=== PATIENT | female | born 1950 | race African-American/Black ===

== ENCOUNTER 2019-08-17 09:32 | Observation (INO) | payer BC, SELFPAY ==
[2019-08-17] VITALS (34 sets, daily range): BP systolic 131–166; BP diastolic 41–67; PULSE 53–87; RESP 13–28; TEMP 36.2–36.9; O2SAT 87–100
--- NOTE | ~2019-08-17 | CT_ITS ---
EXAMINATION: CT BRAIN W/O DATE: 08/17/2019 10:31 INDICATION: Dizziness. Headache. Syncope. TECHNIQUE: Computed tomography (CT) of the head was performed without intravenous contrast. The dose- length product was 605.33 mGy-cm. The mA was adjusted according to patient size. Iterative reconstruc tion technique was employed. COMPARISON: No prior studies for comparison. FINDINGS: Normal brain parenchymal volume for age. Normal powers-white differentiation. No acute intrac ranial hemorrhage, infarction, mass or mass effect. There are scattered mild periventricular and subc ortical white matter changes, most likely related to small vessel ischemic disease (microangiopathy). No ventriculomegaly or midline shift. Midline sagittal images demonstrate a normal corpus callosum, c raniovertebral junction and sella turcica. Basilar cisterns are patent. Paranasal sinuses and mastoids are pneumatized. No depressed skull fractures. IMPRESSION: 1. No acute intracranial abnormality. Reviewed, dictated and finalized at location A.
--- NOTE | 2019-08-17 09:46 | ECG_ITS ---
Measurements Intervals [place] Rate: 59 P: NE: 0 QRS: -1 QRSD: 80 T: 33 QT: 385 QTc: 381 Interpretive Statements JUNCTIONAL RHYTHM VENTRICULAR PREMATURE COMPLEX BORDERLINE ST-T WAVE ABNORMALITY- DIFFUSE LEADS ABNORMAL ECG Electronically Signed On 08-17-2019 13:16:20 CDT by Fausto Padilla D.O.
--- NOTE | 2019-08-17 10:01 | PC.NURSE ---
Pt states she had similar episode last year but not sure why. Pt states she has been dizzy and nausea x 2 days but never felt like she was going to pass out. Pt states she has been eating and drinking normally and BS has been between 80-140. Pt states that is her normal BS. Pt is A&Ox4.
[2019-08-17 10:12] LABS: Basophils Absolute Auto 0.1 K/mm3 (0.0-0.1); Basophils Percent Auto 0.4 % (0.2-1.2); Eosinophils Absolute Auto 0.3 K/mm3 (0-0.3); Eosinophils Percent Auto 2.7 % (0-4.4); Hematocrit 36.4 % (37.0-47.0); Hemoglobin 11.5 g/dL (12.0-15.0); Immature Granulocyte Absolute 0.04 K/mm3 (0.00-0.031); Immature Granulocyte Percent A 0.3 % (0-0.5); Lymphocytes Absolute Auto 1.17 K/mm3 (0.9-3.2); Lymphocytes Percent Auto 9.5 % (18.3-44.2); Mean Corpuscular HGB Conc 31.6 g/dl (32-36); Mean Corpuscular Hemoglobin 27.1 pg (26-34); Mean Corpuscular Volume 85.6 fl (80-100); Mean Platelet Volume 10.6 fl (7.4-10.4); Monocytes Absolute Auto 0.4 K/mm3 (0.1-0.6); Monocytes Percent Auto 2.9 % (2.6-8.5); Neutrophils Absolute Auto 10.4 K/mm3 (1.3-6.7); Neutrophils Percent Auto 84.2 % (45.5-73.1); Platelet Count Result 290 k/mm3 (150-375); Red Blood Count 4.25 M/mm3 (4.2-5.4); White Blood Count 12.4 K/mm3 (4.5-10.0)
--- NOTE | 2019-08-17 10:16 | ED.DIZZY ---
HPI - Dizziness General Chief Complaint: Syncope Stated Complaint: syncopal episode Time Seen by Provider: 08/17/19 09:52 Source: patient Mode of arrival: EMS Limitations: no limitations History of Present Illness HPI Narrative: This patient is a 68 yo female who presents via EMS for evaluation after suffering a syncopal episode. Patient states for the past 2 days she has not been feeling well. She has been having intermittent episodes of dizziness when she stands up . She reports she was feeling better last night. She states this morning she was in the kitche when she became dizzy and passed out. Her family at bedside states she her 2 daughters caught patient and lowered her to the ground, so there was no head injury. Patient does reports bad frontal headache yesterday but has since resolved. She denies associated chest pain, sob, abdominal pain, focal weakness, blurred vision currently. She denies history of syncopal episode, heart disease. She does take verapamil but she is unsure why. MD elicited complaint: dizziness and lightheadedness Onset (ago): day(s) (2) Description: lightheadedness Context: change in body position Exacerbating factors: change in body position Related Data Home Medications Medication Instructions Recorded Confirmed clopidogrel 75 mg tablet 75 mg PO DAILY 03/24/19 08/17/19 gabapentin 100 mg capsule 100 mg PO HS 03/24/19 08/17/19 insulin degludec 200 unit/mL (3 130 unit SUB-Q DAILY ml 03/24/19 08/17/19 mL) subcutaneous pen semaglutide 1 mg/dose (2 mg/1.5 1 mg SUB-Q WEEKLY 03/24/19 08/17/19 mL) subcutaneous pen injector insulin lispro 100 unit/mL 5 unit SUB-Q .before each meal ml 03/26/19 08/17/19 subcutaneous pen pravastatin 10 mg PO DAILY 08/17/19 08/17/19 verapamil 480 mg PO DAILY 08/17/19 08/17/19 Allergies Allergy/AdvReac Type Severity Reaction Status Date / Time No Known Drug Allergies Allergy Unknown Unknown Verified 08/17/19 09:36 Review of Systems Review of Systems: All systems reviewed & are unremarkable except as noted in HPI and below Constitutional: Constitutional: Denies chills and Denies fever(s) Eyes: Eyes: Denies change in vision, Denies diplopia, Denies loss of peripheral vision and Reports requires corrective lenses ENT: Denies dysphagia, Denies vertigo, Reports dizziness, Denies nasal congestion and Denies sore throat Cardiovascular: Cardiovascular: Denies chest pain and Denies radiating jaw, neck or arm pain Respiratory: Respiratory: Denies cough, Denies dyspnea and Denies wheezing Gastrointestinal: Gastrointestinal: Denies abdominal pain, Denies bloating, Denies constipation, Denies heartburn, Denies diarrhea, Reports nausea and Denies vomiting Neurologic: Denies vertigo, Reports dizziness, Reports headache(s), Denies focal weakness, Denies numbness and Denies weakness [facility] Past Medical History Medical History (Updated 08/17/19 @ 18:56 by Bertha Roberts MD) Chronic anemia Essential (primary) hypertension Mixed hyperlipidemia Neuropathy due to type 2 diabetes mellitus Normal cardiac stress test (~11/2014) Obstructive sleep apnea on CPAP Peripheral arterial disease OLENA on September 25, 2018 done for claudication showed arterial occlusive disease to both lower limbs with mild decrease in right OLENA and moderate to severe decrease left OLENA. Status post bilateral iliac stents per Dr. Márquez. Type 2 diabetes mellitus with hyperglycemia, with long-term current use of insulin Hemoglobin A1c was 7.6% in March 2019. Surgical History Surgical History (Updated 08/17/19 @ 17:43 by Bisi Rivera PA-C) History of colonoscopy (~03/2010) Per Dr. Gonzales, for evaluation of rectal bleeding. Found to have internal hemorrhoids and stiff grade diverticulosis. History of hysterectomy History of vascular surgery Bilateral iliac artery stents per Dr. Márquez at [facility]. Family History Family History (Reviewed 08/17/19 @ 15:18 by
[2019-08-17 10:24] LABS: Prothrombin Time 13.1 Seconds (11.1-14.7)
[2019-08-17 10:25] LABS: Blood Urea Nitrogen 32 mg/dL (7-17); Calcium 9.6 mg/dL (8.4-10.2); Carbon Dioxide 23 mmol/L (22-30); Chloride 104 mmol/L (98-107); Estimated CRCL calculation 43 ml/min; Estimated Glomerular Filt Rate 50; Glucose 132 mg/dL (65-105); Magnesium 1.9 mg/dL (1.6-2.3); Partial Thromboplastin Time 23.6 SECONDS (22.3-36.8); Potassium 4.5 mmol/L (3.4-5.0); Sodium 135 mmol/L (137-145)
[2019-08-17 10:37] LABS: Troponin I < 0.012 ng/mL (0.000-0.034)
[2019-08-17 11:17] LABS: Add Urine Microscopic? YES; Appearance Urine Clear (Clear); Bacteria Urine Trace /hpf; Bilirubin Urine Negative (Negative); Blood Urine Negative (Negative); Color Urine Yellow (Yellow); Glucose Urine UA 3+ mg/dL (Negative); Hyaline Casts Urine 20-29 /lpf; Ketones Urine Negative (Negative); Leukocyte Esterase Ur Negative LEU/UL (Negative); Mucus Urine Rare /lpf; Nitrate Urine Negative (Negative); Protein Urine Negative (Negative); RBC Urine 0-2 /hpf (0-2); Specific Grav Ur 1.012 (1.001-1.035); Squamous Epithelial Cell Urine Occasional /hpf (Few); Urobilinogen Urine Negative mg/dL (<2.0); WBC Urine 0-3 /hpf
--- NOTE | 2019-08-17 14:27 | PM.CNCAR ---
Assessment and Plan Assessment and plan (1) Type 2 diabetes mellitus with hyperglycemia, with long-term current use of insulin: Code(s): E11.65 - Type 2 diabetes mellitus with hyperglycemia; Z79.4 - buttermilk drier operator (current) use of insulin Status: Acute (2) Mixed hyperlipidemia: Code(s): E78.2 - Mixed hyperlipidemia Status: Acute Assessment and Plan: Will check lipid profile and treat accordingly (3) Arterial disease: Code(s): I77.9 - Disorder of arteries and arterioles, unspecified Status: Acute (4) Essential (primary) hypertension: Code(s): I10 - Essential (primary) hypertension Status: Acute Assessment and Plan: She was on verapamil which would have to stop due to bradycardia, will switch to Norvasc (5) Claudication: Code(s): I73.9 - Peripheral vascular disease, unspecified Status: Acute (6) Syncope: Code(s): R55 - Syncope and collapse Status: Acute Assessment and Plan: Likely due to bradycardia, which is probably is due to either sick sinus syndrome or due to medications, we will hold verapamil for now and watch her heart rhythm, if she has no recurrence of syncope and she has no significant bradycardia then she would be okay, otherwise she has bradycardia gain or she had syncope again while not taking the verapamil then she would need pacemaker with possible underlying sick sinus syndrome (7) Symptomatic bradycardia: Code(s): R00.1 - Bradycardia, unspecified Status: Acute Assessment and Plan: Likely due to medication with verapamil, will put that on hold, monitor heart rhythm, may need pacemaker if she has persistent bradycardia in spite of stopping verapamil. Will get echocardiogram to evaluate current left ventricular systolic function, and look for any structural heart disease Additional Plan Thank you for allowing me to participate in this patient's care, I will be following up with you. Please do not hesitate to call me for any other inquiry History of Present Illness History of Present Illness Consult date/time: 08/17/19 14:27 68-year-old lady, with history of hypertension, came to hospital because of history of syncope and dizziness. She stated that she had history of syncope in the past but at that time was related to dehydration last year she has not been feeling well for the past 2 or 3 days and had 1 episode of syncope this morning. Paramedics called and when they arrived was noted to have bradycardia seems to be junctional bradycardia, I gave her 1 amp of atropine, improved her heart rate. She felt better since, she is feeling okay now. Initially she was noted to have junctional rhythm and now she is in sinus rhythm rate of 59. She had not been feeling well for the past few days, according to her she was on verapamil for the past few years, for hypertension. The lately and not been feeling well. She also had 1 episode of diaphoresis but no chest pain, and had nausea but no vomiting. So far cardiac enzymes are negative and EKG showed sinus bradycardia and junctional bradycardia with no ischemic ST-T changes and no ST elevation Reason For Visit: syncope/etienne cardia Review of Systems Constitutional: Constitutional: Reports fatigue, Reports lethargy and Reports weakness Cardiovascular: Cardiovascular: Reports as per HPI Respiratory: Respiratory: Reports dyspnea on exertion [facility] Past Medical History Medical History (Updated 08/17/19 @ 14:29 by Joel Escobar MD) Arterial disease Essential (primary) hypertension Mixed hyperlipidemia Neuropathy due to type 2 diabetes mellitus Type 2 diabetes mellitus with hyperglycemia, with long-term current use of insulin Family History Family History (Updated 11/12/15 @ 23:19 by DOCTOR UNKNOWN) Father Family history of glaucoma Family history of diabetes mellitus in first degree relative Family history of type 2 diabetes mellitus Mother F
--- NOTE | 2019-08-17 14:32 | ADMGEN ---
This patient, Lawanda Diaz, was admitted to 2 Medical Room 253-01. Patient/family oriented to hospital policies and general routines including ID bracelet, bed and alarms, visiting hours, pain management, procedures, bathroom and other care routines, personal items, smoking policy, room service/diet, and visiting hours. Valuables list has been completed. Information on how to activate the Rapid Response Team has been discussed. Patient/Family are encouraged to report perceived risks to care and to ask questions if they do not understand what they are told or what they should do.
--- NOTE | 2019-08-17 15:50 | PM.IMHP ---
H&P: HPI History of Present Illness Chief complaint: Syncopal episode. Narrative: Lawanda Diaz is a 68-year-old female with insulin-dependent type 2 diabetes mellitus, hypertension, hyperlipidemia, and obstructive sleep apnea who presented to the emergency department earlier today via EMS from home for evaluation after a syncopal episode. She has been feeling unwell for the past 2 days, with intermittent episodes of dizziness/lightheadedness and fatigue, as well as a diffuse headache. While in the kitchen this morning she suddenly started to feel warm and became dizzy/lightheaded, nauseated, and diaphoretic. Her daughters were nearby, and they were able to lower her to the floor where she lost consciousness briefly. On EMS arrival, her blood pressure was 137/61 her pulse was 45. She does not know her baseline heart rate, but has never been told of bradycardia. She denies the addition of any new medications recently and has not had any dose changes. She has been eating and drinking as per usual, but did have some diarrhea earlier today. No fever, chills, or sweats. She denies sinus congestion, rhinorrhea, otalgia, and odynophagia. No cough or shortness of breath. No chest pain, pleuritic pain, or palpitations. Fasting glucose this morning was 103, which is pretty typical for her. She has not had any episodes of hypoglycemia recently. Review of Systems Review of Systems: Narrative: Twelve systems were reviewed with pertinent positives and negatives as per HPI. She denies sick contacts. No recent travel. No dysuria. She denies nephropathy, neuropathy, and retinopathy. She believes her diabetes is fairly well controlled with a recent hemoglobin A1c of 7.6% several months ago. No history of venous thromboembolism. She denies lower extremity edema, calf pain, and tenderness. Except as documented, all other systems were reviewed and are negative. [facility] Past Medical History Medical History (Updated 08/17/19 @ 17:50 by Bisi Rivera PA-C) Chronic anemia Essential (primary) hypertension Mixed hyperlipidemia Neuropathy due to type 2 diabetes mellitus Normal cardiac stress test (~11/2014) Obstructive sleep apnea on CPAP Peripheral arterial disease OLENA on September 25, 2018 done for claudication showed arterial occlusive disease to both lower limbs with mild decrease in right OLENA and moderate to severe decrease left OLENA. Status post bilateral iliac stents per Dr. Márquez. Type 2 diabetes mellitus with hyperglycemia, with long-term current use of insulin Hemoglobin A1c was 7.6% in March 2019. Surgical History Surgical History (Updated 08/17/19 @ 17:43 by Bisi Rivera PA-C) History of colonoscopy (~03/2010) Per Dr. Gonzales, for evaluation of rectal bleeding. Found to have internal hemorrhoids and stiff grade diverticulosis. History of hysterectomy History of vascular surgery Bilateral iliac artery stents per Dr. Márquez at [facility]. Family History Family History Father Family history of glaucoma Family history of diabetes mellitus in first degree relative Family history of type 2 diabetes mellitus Mother Family history of congestive heart failure Social History Social History (Updated 08/17/19 @ 17:43 by Bisi Rivera PA-C) Social History: The patient lives in [place] with her daughter and granddaughter. She works for [employer]. She is a former smoker, up to half a pack of cigarettes a day, and quit about 6 years ago. She denies alcohol and drug abuse. Her sister Paula Cazares and daughter Julianna Lovell are her surrogate decision makers and she wishes to be a full code. Spiritual care concerns: No Agree to blood products: Yes Meds Home Medications and Allergies Home Medications Medication Instructions Recorded Confirmed Type clopidogrel 75 mg tablet 75 mg PO DAILY 03/24/19 08/17/19 History gabapentin 100 mg cap
[2019-08-17 16:16] LABS: Cholesterol 134 mg/dL (0-200); HDL Direct 32 mg/dL; Triglycerides 77 mg/dL (<150)
[2019-08-17 16:27] LABS: LDL Cholesterol Direct 70 mg/dL
[2019-08-17 16:34] LABS: Glucose Point of Care 82 (65-105)
[2019-08-17 16:48] LABS: Thyroid Stimulating Hormone 0.813 uIU/mL (0.465-4.680)
[2019-08-17] MEDS: SODIUM CHLORIDE 0.9% IV 1,000 ML 100 ML IV CONT (18:08)
[2019-08-17] MEDS: GABAPENTIN 100 MG CAPSULE PO (20:52)
[2019-08-17 22:39] LABS: Glucose Point of Care 109 (65-105)
[2019-08-18] VITALS (10 sets, daily range): BP systolic 115–139; BP diastolic 46–79; PULSE 67–87; RESP 18–20; TEMP 35.9–36.1; O2SAT 97–98
--- NOTE | 2019-08-18 | ECHO_ITS ---
Patient Info Name: Lawanda Diaz Age: 68 years : 1950 Gender: Female Ht: 63 in Wt: 220 lbs BSA: 2.16 m2 HR: 72 bpm BP: 115 / 55 mmHg Heart Rhythm: Sinus Rhythm Technical Quality: Good Exam Date: 08/18/2019 10:54 AM Exam Location: [facility] Card Pulmonary Patient Status: Inpatient Admit Date: 08/17/2019 Staff Ordering Physician: Joel Escobar MD Injection Molding Machine Tender: Miguelito Arzola RDCS Attending Provider: Krsitin Coppola MD Exam Type: CA echo doppler color flow Study Info Indications R00.1 - Bradycardia, unspecified Complete two-dimensional, color flow and Doppler transthoracic echocardiogram is performed. History/Risk Factors Bradycardia and syncope; HTN, anemia, DM2, PAD, ANYA. Summary 1. Left ventricular chamber dimension is normal. 2. Left ventricular systolic function is normal, estimated at 60-65%. 3. Right ventricular systolic function is normal. 4. Left atrial chamber dimension is normal. 5. There is mild aortic valve sclerosis. 6. There is no aortic valve stenosis. 7. There is no mitral valve regurgitation. 8. There is mild tricuspid valve regurgitation. 9. No pulmonary hypertension, estimated pulmonary arterial systolic pressure is 37 mmHg. 10. There is no pericardial effusion. Left Ventricle Left ventricular chamber dimension is normal. Left ventricular systolic function is normal, estimated at 60-65%. There is no increased left ventricular wall thickness. Left ventricular septal wall motion is normal. The left ventricular diastolic function is normal. Right Ventricle Right ventricular chamber dimension is normal. Right ventricular systolic function is normal. Left Atria Left atrial chamber dimension is normal. Right Atria Right atrial chamber dimension is normal. Aortic Valve The aortic valve is trileaflet. There is mild aortic valve sclerosis. There is no aortic valve stenosis. There is no aortic valve regurgitation. Pulmonic Valve The pulmonic valve is normal. There is no pulmonic valve stenosis. There is no pulmonic regurgitation. Mitral Valve The mitral valve has normal leaflets. There is no mitral valve stenosis. There is no mitral valve regurgitation. Tricuspid Valve The tricuspid valve leaflets are normal. There is no significant tricuspid valve stenosis. There is mild tricuspid valve regurgitation. No pulmonary hypertension, estimated pulmonary arterial systolic pressure is 37 mmHg. Pericardium/Pleural The pericardium appears normal. There is no pericardial effusion. Inferior Vena Cava Normal inferior vena cava. Aorta The aortic root size at the sinus of Valsalva is normal. The prox ascending aorta size is normal. Left Ventricular Outflow Tract Name Value Normal LVOT 2D LVOT Diameter 1.9 cm LVOT Doppler LVOT Peak Gradient 5 mmHg LVOT Mean Gradient 3 mmHg LVOT VTI 28 cm LVOT VTI/AV VTI Ratio 0.6 LVOT Stroke Volume 80 ml LVOT CO
[2019-08-18] MEDS: SODIUM CHLORIDE 0.9% IV 1,000 ML 100 ML IV CONT (04:22)
[2019-08-18 05:07] LABS: Basophils Absolute Auto 0.1 K/mm3 (0.0-0.1); Basophils Percent Auto 0.6 % (0.2-1.2); Eosinophils Absolute Auto 0.3 K/mm3 (0-0.3); Eosinophils Percent Auto 3.8 % (0-4.4); Hematocrit 36.3 % (37.0-47.0); Hemoglobin 11.5 g/dL (12.0-15.0); Immature Granulocyte Absolute 0.02 K/mm3 (0.00-0.031); Immature Granulocyte Percent A 0.2 % (0-0.5); Lymphocytes Absolute Auto 1.58 K/mm3 (0.9-3.2); Lymphocytes Percent Auto 17.5 % (18.3-44.2); Mean Corpuscular HGB Conc 31.7 g/dl (32-36); Mean Corpuscular Hemoglobin 27.3 pg (26-34); Mean Platelet Volume 10.6 fl (7.4-10.4); Monocytes Absolute Auto 0.5 K/mm3 (0.1-0.6); Monocytes Percent Auto 5.2 % (2.6-8.5); Neutrophils Absolute Auto 6.6 K/mm3 (1.3-6.7); Neutrophils Percent Auto 72.7 % (45.5-73.1); Platelet Count Result 304 k/mm3 (150-375); Red Blood Count 4.22 M/mm3 (4.2-5.4); Red Cell Distribution Width 13.8 % (11.5-14.5)
[2019-08-18 05:18] LABS: Blood Urea Nitrogen 22 mg/dL (7-17); Calcium 9.2 mg/dL (8.4-10.2); Carbon Dioxide 27 mmol/L (22-30); Chloride 105 mmol/L (98-107); Estimated CRCL calculation 61 ml/min; Estimated Glomerular Filt Rate > 60; Glucose 122 mg/dL (65-105); Potassium 4.2 mmol/L (3.4-5.0); Sodium 136 mmol/L (137-145)
[2019-08-18 08:00] LABS: Glucose Point of Care 118 (65-105)
[2019-08-18] MEDS: PRAVASTATIN SODIUM 10 MG TABLET PO (08:42)
[2019-08-18] MEDS: LOSARTAN POTASSIUM 100 MG TABLET PO (08:42)
[2019-08-18] MEDS: CLOPIDOGREL BISULFATE 75 MG TABLET PO (08:42)
[2019-08-18] MEDS: SODIUM CHLORIDE 0.9% IV 500 ML IV CONT (10:30)
[2019-08-18 10:48] LABS: Glucose Point of Care 166 (65-105)
--- NOTE | 2019-08-18 11:06 | PM.PNCARD ---
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 insulin Status: Acute (2) Mixed hyperlipidemia: Code(s): E78.2 - Mixed hyperlipidemia Status: Acute Assessment and Plan: Will check lipid profile and treat accordingly (3) Arterial disease: Code(s): I77.9 - Disorder of arteries and arterioles, unspecified Status: Acute (4) Essential (primary) hypertension: Code(s): I10 - Essential (primary) hypertension Status: Acute Assessment and Plan: She was on verapamil which would have to stop due to bradycardia, will switch to Norvasc (5) Claudication: Code(s): I73.9 - Peripheral vascular disease, unspecified Status: Acute (6) Syncope: Code(s): R55 - Syncope and collapse Status: Acute Assessment and Plan: No recurrence, she is in sinus rhythm now, likely was due to ruptured which was stopped (7) Symptomatic bradycardia: Code(s): R00.1 - Bradycardia, unspecified Status: Acute Assessment and Plan: Heart rate is 80 now, no recurrence of bradycardia. If echocardiogram showed no significant structural heart disease then she can go home without the verapamil Additional Plan After echocardiogram is done if no significant structural heart disease she can go home without the verapamil, and to have a follow-up with me in 1 week Subjective Date/time seen: 08/18/19 11:06 She feels better today, no more dizziness or lightheadedness, on the monitor she has sinus rhythm noted with no recurrence of bradycardia. Exam Narrative: Exam Narrative: Awake alert oriented x3 not in acute distress Neck is supple no obvious JVD, no carotid bruit Chest: Good air entry bilaterally, lungs are clear to auscultation and percussion bilaterally Cardiovascular: Regular rate and rhythm, 2/6 systolic murmur noted left sternal border Abdomen: Soft nontender bowel sounds positive Extremities: No edema has good pulses distally bilaterally Objective Data Vital Signs Vital Signs: Vital Signs - 24 hr 08/17/19 11:07 08/17/19 11:16 08/17/19 11:30 Temperature Pulse Rate 85 85 81 Respiratory Rate 16 14 18 Blood Pressure Pulse Oximetry 87 L 100 08/17/19 11:31 08/17/19 11:47 08/17/19 11:50 Temperature Pulse Rate 81 73 75 Respiratory Rate 17 17 15 Blood Pressure 151/67 H 146/58 H Pulse Oximetry 96 100 99 08/17/19 12:11 08/17/19 12:19 08/17/19 12:30 Temperature Pulse Rate 75 69 72 Respiratory Rate 17 18 19 Blood Pressure Pulse Oximetry 98 97 97 08/17/19 12:45 08/17/19 12:47 08/17/19 13:05 Temperature Pulse Rate 76 75 65 Respiratory Rate 20 17 14 Blood Pressure 166/65 H Pulse Oximetry 99 98 100 08/17/19 13:15 08/17/19 13:17 08/17/19 13:30 Temperature Pulse Rate 74 78 76 Respiratory Rate 13 19 16 Blood Pressure 150/57 H Pulse Oximetry 99 100 97 08/17/19 14:15 08/17/19 16:00 08/17/19 20:00 Temperature 36.3 C L 36.4 C L Pulse Rate 70 85 87 Respiratory Rate 16 18 Blood Pressure 136/52 L 150/59 H Pulse Oximetry 100 97 08/17/19 20:56 08/17/19 20:57 08/17/19 22:00 Temperature 36.3 C L 36.4 C L 36.2 C L Pulse Rate 73 87 74 Respiratory Rate 16 18 16 Blood Pressure 139/49 L 150/59 H 140/42 L Pulse Oximetry 100 97 98 08/17/19 22:09 08/18/19 00:00 08/18/19 02:36 Temperature Pulse Rate 68 68 67 Respiratory Rate 16 20 Blood Pressure Pulse Oximetry 98 97 08/18/19 04:00 08/18/19 06:00 08/18/19 08:00 Temperature 36.1 C L Pulse Rate 77 73 87 Respiratory Rate 18 18 Blood Pressure 115/55 L Pulse Oximetry 97 97 08/18/19 08:24 08/18/19 08:26 08/18/19 08:29 Temperature Pulse Rate 70 74 87 Respiratory Rate Blood Pressure 127/69 135/73 139/79 Pulse Oximetry Intake/Output Intake/Out
--- NOTE | 2019-08-18 11:36 | PM.DS ---
DS: Diagnosis Admitting Diagnosis Admitting Diagnosis: Type 2 diabetes mellitus with hyperglycemia Discharge Diagnosis (1) Syncope: Code(s): R55 - Syncope and collapse Status: Acute Assessment and Plan: Presumably due to symptomatic bradycardia; orthostatic vital signs were unremarkable. Her serum creatinine level is elevated from her baseline, arguing that she might have beenmildly dehydrated. Creatinine corrected with IV hydration overnight Overnight telemetry unremarkable Echocardiogram OK per Dr. Menjivar Verapamil on hold at this time. (2) Bradycardia: Code(s): R00.1 - Bradycardia, unspecified Status: Acute Assessment and Plan: Likely due to medication (verapamil) (3) Elevated serum creatinine: Code(s): R79.89 - Other specified abnormal findings of blood chemistry Status: Acute Assessment and Plan: Her creatinine has always been within normal range except for an isolated, elevated reading in March 2019 of 1.03. Normalized with IVF overnight (4) Type 2 diabetes mellitus with hyperglycemia, with long-term current use of insulin: Code(s): E11.65 - Type 2 diabetes mellitus with hyperglycemia; Z79.4 - assisted (current) use of insulin Status: Acute Assessment and Plan: Resume home regimen upon discharge (5) Essential (primary) hypertension: Code(s): I10 - Essential (primary) hypertension Status: Acute Assessment and Plan: Blood pressure well controlled without verapamil Suspect noncompliance with diet, meds at home (6) Chronic anemia: Code(s): D64.9 - Anemia, unspecified Status: Acute Assessment and Plan: Hemoglobin and hematocrit are stable compare to previous labs. (7) Obstructive sleep apnea on CPAP: Code(s): G47.33 - Obstructive sleep apnea (adult) (pediatric); Z99.89 - Dependence on other enabling machines and devices Status: Acute Assessment and Plan: CPAP (8) Peripheral arterial disease: Code(s): I73.9 - Peripheral vascular disease, unspecified Status: Acute Assessment and Plan: Status post bilateral iliac stents. Continue clopidogrel and pravastatin. DS: Summary Hospital Course Reason for hospitalization: Syncopal episode Hospital Course: Patient experienced a syncopal episode at home. She felt warm dizzy. Passed out but did not fall and hit her head or injure herself. See H&P for details. There was no incontinence tongue biting. No postictal phase. She was admitted for observation. Her for appt mil was held. Heart rate was 45 initially. She remained in sinus rhythm with heart rate in the 60s to 70s. She was asymptomatic. She was given IV hydration overnight due to elevated creatinine. This resolved. She was encouraged to eat and drink adequate amounts, especially fluid. Medications were adjusted and noted and discharge medications. Her blood sugars remained under good control. A1c was 7.7%. Echocardiogram was unremarkable. Patient was seen by cardiology and they agreed with plan of care. Status at Discharge Functional status at discharge: independent ambulation Overall status at discharge: patient is back to baseline Time Spent with Patient Time attestation: Total time spent providing and/or coordinating discharge services: 36 min Time spent: Greater than 30 minutes Exam Narrative: Exam Narrative: HEENT: EOMI, PERRL, sclerae nonicteric, pharyngeal mucosa pink and intact NECK: No JVD, adenopathy, or t
== END 2019-08-18 15:36 | disposition home or self-care (01) ==
LOC: ANHED 13:13 → ANH2MED 16:15
PROVIDERS: Specialist; Admitting Provider Family Medicine; Emergency Provider General Practice; PCP Internal Medicine; Visit Provider Internal Medicine
DX: R55 Syncope and collapse (principal); R00.1 Bradycardia, unspecified; R79.89 Other specified abnormal findings of blood chemistry; E11.65 Type 2 diabetes mellitus with hyperglycemia; E11.40 Type 2 diabetes mellitus with diabetic neuropathy, unspecified; E11.51 Type 2 diabetes mellitus with diabetic peripheral angiopathy without gangrene; I10 Essential (primary) hypertension; D64.9 Anemia, unspecified; G47.33 Obstructive sleep apnea (adult) (pediatric); E78.2 Mixed hyperlipidemia; Z79.4 Long term (current) use of insulin; Z79.899 Other long term (current) drug therapy; Z87.891 Personal history of nicotine dependence
CPT/HCPCS: 36415; 70450; 80048; 80061; 81001; 83735; 84443; 84484; 85025; 85610; 85730; 93005; 93306; 96360; 96361; 99285; A9270; G0378; J7030; J7040

== ENCOUNTER 2020-01-14 02:22 | Outpatient (CLI) | payer BC, SELFPAY ==
[2020-01-14 18:24] LABS: SARS-CoV-2 RNA PCR Negative
== END 2020-01-14 02:23 | disposition home or self-care (01) ==
LOC: ANHCOVIDDT 02:23
PROVIDERS: PCP Internal Medicine; Visit Provider Internal Medicine Gastroenterology
DX: Z01.812 Encounter for preprocedural laboratory examination (principal); Z20.828 Contact with and (suspected) exposure to other viral communicable diseases
CPT/HCPCS: 87635; C9803; U0003

== ENCOUNTER 2020-01-16 00:51 | Day surgery (SDC) | payer BC, SELFPAY ==
[2020-01-07 15:03] VITALS: BMI 37.0
[2020-01-16 09:33] VITALS: BP 149/68; PULSE 79; RESP 20; TEMP 36; O2SAT 100
[2020-01-16 09:44] LABS: Glucose Point of Care 116 (65-105)
[2020-01-16] MEDS: LACTATED RINGERS 1,000 ML 150 ML IV CONT (09:57)
--- NOTE | 2020-01-16 10:25 | PM.HPGS ---
History of Present Illness History of Present Illness Consent: Risks, benefits, and alternatives have been discussed and questions answered. Patient agrees to proceed with procedure. Chief complaint: Neoplasm Screening Narrative: Lawanda Diaz is a 69 year old female Here for colon cancer screening [facility] Past Medical History Medical History Chronic anemia Essential (primary) hypertension Mixed hyperlipidemia Neuropathy due to type 2 diabetes mellitus Normal cardiac stress test (~11/2014) Obstructive sleep apnea on CPAP Peripheral arterial disease OLENA on September 25, 2018 done for claudication showed arterial occlusive disease to both lower limbs with mild decrease in right OLENA and moderate to severe decrease left OLENA. Status post bilateral iliac stents per Dr. Márquez. Type 2 diabetes mellitus with hyperglycemia, with long-term current use of insulin Hemoglobin A1c was 7.6% in March 2019. Surgical History Surgical History History of colonoscopy (~03/2010) Per Dr. Gonzales, for evaluation of rectal bleeding. Found to have internal hemorrhoids and stiff grade diverticulosis. History of hysterectomy History of vascular surgery Bilateral iliac artery stents per Dr. M[facility]quez at [facility]. Family History Family History Father Family history of glaucoma Family history of diabetes mellitus in first degree relative Family history of type 2 diabetes mellitus Mother Family history of congestive heart failure Social History Social History Social History: The patient lives in [place] with her daughter and granddaughter. She works for [employer]. She is a former smoker, up to half a pack of cigarettes a day, and quit about 6 years ago. She denies alcohol and drug abuse. Her sister Paula Cazares and daughter Julianna Lovell are her surrogate decision makers and she wishes to be a full code. Living arrangements: with family Spiritual care concerns: No Agree to blood products: Yes Meds Home Medications and Allergies Home Medications Medication Instructions Recorded Confirmed Type clopidogrel 75 mg tablet 75 mg PO DAILY 03/24/19 01/07/20 History pen needle, diabetic 32 gauge x #100 each 10/24/19 01/07/20 Rx 5/32 metformin 1,000 mg tablet 1,000 mg PO BID #180 tablet 11/10/19 01/07/20 Rx amlodipine 5 mg tablet 5 mg PO DAILY #90 tablet 11/12/19 01/07/20 Rx semaglutide 1 mg/dose (2 mg/1.5 1 mg SUB-Q WEEKLY #3 ml 11/12/19 01/07/20 Rx mL) subcutaneous pen injector pravastatin 20 mg tablet 10 mg PO DAILY #90 tablet 12/08/19 01/07/20 Rx dapagliflozin 10 mg tablet 10 mg PO DAILY #90 tablet 12/15/19 01/07/20 Rx insulin degludec 200 unit/mL (3 130 unit SUB-Q DAILY #9 ml 12/26/19 01/07/20 Rx mL) subcutaneous pen insulin lispro 100 unit/mL 5 unit SUB-Q .before each meal #3 12/26/19 01/07/20 Rx subcutaneous pen ml gabapentin 100 mg capsule 200 mg PO HS #180 cap 01/02/20 01/07/20 Rx losartan 100 1 tablet PO DAILY #90 tablet 01/07/20 01/07/20 Rx mg-hydrochlorothiazide 25 mg tablet Allergies Allergy/AdvReac Type Severity Reaction Status Date / Time No Known Drug Allergies Allergy Unknown Unknown Verified 01/16/20 09:31 Vital Signs Vital Signs - 24 hr 01/16/20 09:33 Temperature 36.0 C L Pulse Rate 79 Respiratory Rate 20 Blood Pressure 149/68 H Pulse Oximetry 100 Exam Resp: Auscultation: clear to auscultation bilaterally Cardio: Rate: regular rate Rhythm: regular rhythm GI: GI Palp: Yes Soft to palpation and No Tenderness to palpation present (GI) Assessment and Plan Assessment and plan (1) Colon cancer screening: Code(s): Z12.11 - Encounter for screening for malignant neoplasm of colon Status: Acute Assessment and Plan: Colonoscopy wi
--- NOTE | 2020-01-16 10:35 | WPDANESEPPF ---
Anes - Initial Pre Proc Eval Procedure: Operation Date: 01/16/20 10:30 Proposed Procedures p Screening Colonoscopy - Lobo Gonzales MD Date/Time: 01/16/20 10:35 Surgeon: Lobo Gonzales MD Pre Op Diagnosis: Neoplasm Screening Patient Data Age: 69 Gender: F Height: 5 ft 3 in Weight: 92.2 kg Last Vital Signs Temp 96.8 F L 01/16/20 09:33 Pulse 79 01/16/20 09:33 Resp 20 01/16/20 09:33 BP 149/68 H 01/16/20 09:33 Pulse Ox 100 01/16/20 09:33 Allergies Allergy/AdvReac Type Severity Reaction Status Date / Time No Known Drug Allergies Allergy Unknown Unknown Verified 01/16/20 09:31 Home Medications Medication Instructions Recorded Confirmed Type clopidogrel 75 mg tablet 75 mg PO DAILY 03/24/19 01/07/20 History pen needle, diabetic 32 gauge x #100 each 10/24/19 01/07/20 Rx /32 metformin 1,000 mg tablet 1,000 mg PO BID #180 tablet 11/10/19 01/07/20 Rx amlodipine 5 mg tablet 5 mg PO DAILY #90 tablet 11/12/19 01/07/20 Rx semaglutide 1 mg/dose (2 mg/1.5 1 mg SUB-Q WEEKLY #3 ml 11/12/19 01/07/20 Rx mL) subcutaneous pen injector pravastatin 20 mg tablet 10 mg PO DAILY #90 tablet 12/08/19 01/07/20 Rx dapagliflozin 10 mg tablet 10 mg PO DAILY #90 tablet 12/15/19 01/07/20 Rx insulin degludec 200 unit/mL (3 130 unit SUB-Q DAILY #9 ml 12/26/19 01/07/20 Rx mL) subcutaneous pen insulin lispro 100 unit/mL 5 unit SUB-Q .before each meal #3 12/26/19 01/07/20 Rx subcutaneous pen ml gabapentin 100 mg capsule 200 mg PO HS #180 cap 01/02/20 01/07/20 Rx losartan 100 1 tablet PO DAILY #90 tablet 01/07/20 01/07/20 Rx mg-hydrochlorothiazide 25 mg tablet Laboratory Tests 01/16/20 09:42 POC Capillary Glucose 116 mg/dl H mg/dl (65-105) Patient hx anesthesia problems: none Family hx anesthesia problems: none [facility] Past Medical History Medical History Chronic anemia Essential (primary) hypertension Mixed hyperlipidemia Neuropathy due to type 2 diabetes mellitus Normal cardiac stress test (~11/2014) Obstructive sleep apnea on CPAP Peripheral arterial disease OLENA on September 25, 2018 done for claudication showed arterial occlusive disease to both lower limbs with mild decrease in right OLENA and moderate to severe decrease left OLENA. Status post bilateral iliac stents per Dr. Márquez. Type 2 diabetes mellitus with hyperglycemia, with long-term current use of insulin Hemoglobin A1c was 7.6% in March 2019. Surgical History Surgical History History of colonoscopy (~03/2010) Per Dr. Gonzales, for evaluation of rectal bleeding. Found to have internal hemorrhoids and stiff grade diverticulosis. History of hysterectomy History of vascular surgery Bilateral iliac artery stents per Dr. M[facility]quez at [facility]. Family History Family History Father Family history of glaucoma Family history of diabetes mellitus in first degree relative Family history of type 2 diabetes mellitus Mother Family history of congestive heart failure Social History Social History Social History: The patient lives in [place] with her daughter and granddaughter. She works for [employer]. She is a former smoker, up to half a pack of cigarettes a day, and quit about 6 years ago. She denies alcohol and drug abuse. Her sister Paula Cazares and daughter Julianna Lovell are her surrogate decision makers and she wishes to be a full code. Living arrangements: with family Spiritual care concerns: No Agree to blood products: Yes Anes - Eval Final PreProcedure Day of Procedure 01/16/20 10:35 Patient weight: obese Heart: regular rate and rhythm Lungs: clear to auscultation Airway: Mallampati scale class II Neurological: alert and oriented Last oral intake: >/= 8 hours ASA classi
[2020-01-16 11:02] VITALS: BP 84/49; PULSE 79; RESP 20; O2SAT 99
[2020-01-16 11:12] VITALS: BP 111/70; PULSE 84; RESP 20; O2SAT 99
[2020-01-16 11:22] VITALS: BP 149/78; PULSE 78; RESP 20; O2SAT 99
[2020-01-16 11:36] LABS: Glucose Point of Care 109 (65-105)
== END 2020-01-16 12:01 | disposition home or self-care (01) ==
PROVIDERS: PCP Internal Medicine; Visit Provider Internal Medicine Gastroenterology
PROC: 0DJD8ZZ Inspection of Lower Intestinal Tract, Via Natural or Artificial Opening Endoscopic (ICD-10-PCS; CPT 45378; principal; 2020-01-16 10:30)
DX: Z12.11 Encounter for screening for malignant neoplasm of colon (principal); K57.30 Diverticulosis of large intestine without perforation or abscess without bleeding; D12.5 Benign neoplasm of sigmoid colon; I10 Essential (primary) hypertension; E78.2 Mixed hyperlipidemia; E11.40 Type 2 diabetes mellitus with diabetic neuropathy, unspecified; E11.51 Type 2 diabetes mellitus with diabetic peripheral angiopathy without gangrene; G47.33 Obstructive sleep apnea (adult) (pediatric); Z87.891 Personal history of nicotine dependence; Z79.02 Long term (current) use of antithrombotics/antiplatelets; Z79.84 Long term (current) use of oral hypoglycemic drugs; Z79.4 Long term (current) use of insulin
CPT/HCPCS: 45380; 88305; J2001; J2704; J7120

== ENCOUNTER 2021-06-18 07:57 | Outpatient (CLI) | payer BC, SELFPAY ==
--- NOTE | ~2021-06-18 | MM_ITS ---
EXAMINATION: MM screening tyree BI w sergio HISTORY: Screening TECHNIQUE: Craniocaudal and mediolateral oblique 3-D tomosynthesis images were obtained and synthetic 2-D images were generated. CAD analysis was submitted and interpreted. COMPARISON: Comparison to multiple prior studies sequentially, with oldest reviewed study dated 12/2012. BREAST PARENCHYMAL COMPOSITION: Breast composed of scattered areas of fibroglandular density FINDINGS: There is no evidence of suspicious mass, calcification, or architectural distortion to sugg est malignancy in either breast. There has been no suspicious interval change. IMPRESSION: 1. No mammographic evidence of malignancy. 2. Recommend routine screening mammography in one year. BI-RADS Category 1: Negative Reviewed, dictated and finalized at location A. ING SUPERVISOR
== END 2021-06-18 07:58 | disposition home or self-care (01) ==
LOC: ANHIMG 07:59
PROVIDERS: PCP Internal Medicine; Visit Provider Obstetrics & Gynecology
DX: Z12.31 Encounter for screening mammogram for malignant neoplasm of breast (principal)
CPT/HCPCS: 77063; 77067

== ENCOUNTER → 2022-02-14 15:17 | Outpatient (CLI) | payer BC, SELFPAY ==
--- NOTE | ~2022-02-14 | DEXA_ITS ---
Bone Density Report Name: STEVE BONILLA Age: 71 Sex: Female Ethnicity: Black Date of : 1950 Indication: postmenopausal; screening for osteoporosis; parental hip fracture; hysterectomy; Referring Provider: TONY CHRISTIANSEN Study: Bone densitometry was performed. Exam Date: February 14, 2022 Accession number: [id number] Bone Density: Region BMD T-score Z-score Classification AP Spine (L1-L4) 1.014 -0.3 1.0 Normal Femoral Neck (Left) 0.669 -1.6 -0.6 Osteopenia Total Hip (Left) 0.866 -0.6 0.0 Normal Femoral Neck (Right) 0.847 0.0 0.7 Normal Total Hip (Right) 0.873 -0.6 0.1 Normal Total Hip Mean 0.870 -0.6 0.1 Normal World Health Organization criteria for BMD impression classify patients as: Normal (T-score at or above -1.0), Osteopenia (T-score between -1.0 and -2.5), or Osteoporosis (T-score at or below -2.5). 10-year Fracture Risk(1): Major Osteoporotic Fracture 7.1% Hip Fracture 1.1% Reported Risk Factors: [place] ([place]), Neck BMD=0.669, BMI=31.7, parental fracture (1) FRAX(R) Version 3.08. Fracture probability calculated for an untreated patient. Fracture probability may be lower if the patient has received treatment. Clinical Information Provided by Patient: Parent has had a hip fracture Has used the following medications: Vitamin D, Calcium Has the following medical conditions: Hysterectomy Patient maximum height was 63 Menopause Age: 47 Does not regularly consume dairy products Drinks caffeinated beverages Onset of menses at age 15 Number of children 2 Impression: The patient has low bone mass, based on the Left Femoral Neck T-score. The patient has an estimated ten-year risk of hip fracture of 1.1% and an estimated ten-year risk of major fracture of 7.1%, based on the WHO FRAX algorithm. The patient has risk factors, including: parental hip fracture. Discussion: BONE DENSITY IS LOW AT ONE OR MORE SKELETAL SITES. This patient's lowest T-score is low at one or more skeletal sites. It meets the World Health Organization's (WHO) criteria for ?low bone mass? (T-score between -1.0 and -2.5). The patient's 10-year risk of fracture as calculated by FRAX is less than the threshold where pharmacological therapy is recommended by the National Osteoporosis Foundation (NOF). However, all treatment decisions require clinical judgment and consideration of individual patient factors, including patient preferences, comorbidities, previous drug use, risk factors not captured in the FRAX model (e.g., frailty, falls, vitamin D deficiency, increased bone turnover, interval significant decline in bone density) and possible under or overestimation of fracture risk by FRAX. The patient should follow a healthful lifestyle (good nutrition with adequate calcium and vitamin D, and appropriate weight-bearing
== END ==
PROVIDERS: PCP Obstetrics & Gynecology; Visit Provider Obstetrics & Gynecology
DX: Z13.820 Encounter for screening for osteoporosis (principal); Z78.0 Asymptomatic menopausal state; M85.852 Other specified disorders of bone density and structure, left thigh
CPT/HCPCS: 77080

== ENCOUNTER 2023-08-09 16:12 | Outpatient (CLI) | payer BC, SELFPAY ==
--- NOTE | ~2023-08-09 | MM_ITS ---
EXAMINATION: MM screening tyree BI w sergio HISTORY: Screening mammogram TECHNIQUE: Craniocaudal and mediolateral oblique 3-D tomosynthesis images were obtained and synthetic 2-D images were generated. CAD analysis was submitted and interpreted. COMPARISON: 06/18/2021, 04/12/2019 bilateral screening mammogram examinations BREAST PARENCHYMAL COMPOSITION: There are scattered areas of fibroglandular density. FINDINGS: Stable bilateral axillary tail and axillary lymph nodes There is no evidence of suspicious mass, calcification, or architectural distortion to suggest malignancy in either breast. There has be en no suspicious interval change. IMPRESSION: 1. No mammographic evidence of malignancy. 2. Recommend routine screening mammography in one year. BI-RADS Category 2: Benign finding(s).. Reviewed, dictated and finalized at location A.
== END 2023-08-09 16:13 | disposition home or self-care (01) ==
LOC: ANHIMG 16:34
PROVIDERS: PCP Nurse Practitioner Family; Visit Provider Nurse Practitioner Family
DX: Z12.31 Encounter for screening mammogram for malignant neoplasm of breast (principal)
CPT/HCPCS: 77063; 77067

== ENCOUNTER 2023-11-05 16:00 | Outpatient (RCR) | payer BC, SELFPAY | END 2024-01-14 10:19 | disposition home or self-care (01) | LOC: ANHDMC 16:00 | PROVIDERS: PCP Nurse Practitioner Family; Visit Provider Nurse Practitioner Family | DX: E11.65 Type 2 diabetes mellitus with hyperglycemia (principal); Z79.4 Long term (current) use of insulin; Z71.89 Other specified counseling | CPT/HCPCS: G0108 ==